=== PATIENT | female | born 1965 | race Caucasian/White ===

== ENCOUNTER 2025-07-24 14:43 | Outpatient (CLI) | payer OTHER | END 2025-07-24 14:44 | disposition home or self-care (01) | LOC: RAD 14:43 | PROVIDERS: ATTEND Internal Medicine | DX: J96.11 Chronic respiratory failure with hypoxia (principal); J90 Pleural effusion, not elsewhere classified; J98.11 Atelectasis | CPT/HCPCS: 71046 ==